=== PATIENT | male | born 1995 | race American Indian/Alaskan Native ===

== ENCOUNTER 2019-02-24 15:40 | Emergency (ER) | payer MEDICAID ==
[~2019-02-24] VITALS: Ht 172.7 cm; Wt 53.2 kg
[2019-02-24 15:45] VITALS: BP 127/73
--- NOTE | 2019-02-24 16:15 | NUR ---
Pt states he left something out in the lobby and needs to go and get it. Pt states he will be right back
--- NOTE | 2019-02-24 17:02 | NUR ---
Patient walked out saying he "forgot something out in the lobby". Patient has not returned
== END 2019-02-24 18:06 | disposition left against medical advice (07) ==
LOC: ER 15:40
DX: J00 Acute nasopharyngitis [common cold] (principal); R05 Cough; R09.89 Other specified symptoms and signs involving the circulatory and respiratory systems; Z53.21 Procedure and treatment not carried out due to patient leaving prior to being seen by health care provider
CPT/HCPCS: 71045

== ENCOUNTER 2021-04-27 18:16 | Emergency (ER) | payer OTHER ==
[~2021-04-27] VITALS: Ht 172.7 cm; Wt 71.6 kg
[2021-04-27] MEDS ORDERED: IBUP-1984 PO (19:06)
[2021-04-27] MEDS ORDERED: CLIN300C54 PO (19:06)
[2021-04-27 19:29] VITALS: BP 117/75
== END 2021-04-27 19:50 | disposition home or self-care (01) ==
LOC: MERGE 18:17 → ER 18:17
DX: K04.7 Periapical abscess without sinus (principal)
CPT/HCPCS: 99283

== ENCOUNTER 2021-04-29 11:10 | Emergency (ER) | payer MEDICAID, OTHER ==
[~2021-04-29 11:10] MED LIST: CLIN300C54 PO; IBUP-1984 PO
[2021-04-29 11:21] VITALS: BP 107/79
[2021-04-29] MEDS ORDERED: clindamycin 150mg capsule PO ONE (13:40)
== END 2021-04-29 13:50 | disposition home or self-care (01) ==
LOC: ER 11:11 → MERGE 11:11 → ER 13:50
DX: K04.7 Periapical abscess without sinus (principal); F17.210 Nicotine dependence, cigarettes, uncomplicated; Z88.0 Allergy status to penicillin; Z79.899 Other long term (current) drug therapy
CPT/HCPCS: 99283

== ENCOUNTER 2021-05-18 13:43 | Emergency (ER) | payer MEDICAID ==
[~2021-05-18] VITALS: Ht 172.7 cm; Wt 57.7 kg
[~2021-05-18 13:43] MED LIST changes: -CLIN300C54 PO
[2021-05-18 14:33] VITALS: BP 132/90
[2021-05-18] MEDS ORDERED: CLIN300C54 PO (15:20)
== END 2021-05-18 15:31 | disposition home or self-care (01) ==
LOC: ER 13:44
DX: K04.7 Periapical abscess without sinus (principal); Z88.0 Allergy status to penicillin; Z79.899 Other long term (current) drug therapy
CPT/HCPCS: 99283

== ENCOUNTER 2021-05-27 07:32 | Emergency (ER) | payer MEDICAID ==
[~2021-05-27] VITALS: Ht 172.7 cm; Wt 59.1 kg
[~2021-05-27 07:32] MED LIST changes: +CLIN300C54 PO
[2021-05-27 07:36] VITALS: BP 130/92
--- NOTE | 2021-05-27 08:25 | NUR ---
first contact with pt. pt standing at bedside, states he needs an inhaler and has hx of asthma. pt completes full sentences, does not appear in distress. awaiting md anthony.
[2021-05-27] MEDS ORDERED: ALBU8HFA PO (08:46)
--- NOTE | 2021-05-27 08:52 | NUR ---
dr. juan at bedside for d/c
== END 2021-05-27 08:54 | disposition home or self-care (01) ==
LOC: ER 07:33
DX: Z76.0 Encounter for issue of repeat prescription (principal); J45.909 Unspecified asthma, uncomplicated; Z88.0 Allergy status to penicillin; Z79.2 Long term (current) use of antibiotics; Z79.899 Other long term (current) drug therapy
CPT/HCPCS: 99281; 99283

== ENCOUNTER 2021-06-16 19:21 | Emergency (ER) | payer MEDICAID ==
[~2021-06-16 19:21] MED LIST changes: +ALBU8HFA PO; -CLIN300C54 PO; -IBUP-1984 PO
--- NOTE | 2021-06-16 19:34 | NUR ---
pt walked out of triage, unable to complete triage. seen leaving ER lobby
--- NOTE | 2021-06-16 19:52 | NUR ---
not in lobby
== END 2021-06-16 21:37 | disposition left against medical advice (07) ==
LOC: ER 19:23
DX: I10 Essential (primary) hypertension (principal); Z53.21 Procedure and treatment not carried out due to patient leaving prior to being seen by health care provider